=== PATIENT | female | born 1975 | race Caucasian/White ===

== ENCOUNTER → 2021-08-30 | Day surgery (SDC) | payer OTHER ==
[~2021-08-30] VITALS: Ht 167.6 cm; Wt 85.3 kg
[~2021-08-30] MED LIST: HYDRALAZINE25 MG PO; ONE-DAILY MULT1 EACH PO; VOLTAREN ARTHRI20 GM TOP
[2021-08-30 08:28] LABS: HCG (URINE) SCREEN NEGATIVE (NEGATIVE)
== END | disposition home or self-care (01) ==
LOC: FAS 07:57
PROVIDERS: Anesthesiology
DX: Z12.11 Encounter for screening for malignant neoplasm of colon (principal); K62.1 Rectal polyp; K64.8 Other hemorrhoids; Z72.89 Other problems related to lifestyle
CPT/HCPCS: 84703; 93005; J2250; J2704; J7120